=== PATIENT | female | born 1940 | race Asian ===

== ENCOUNTER 2018-10-28 16:28 | Inpatient (IN) | payer OTHER, BC ==
[~2018-10-28] VITALS: Ht 149.9 cm; Wt 51.5 kg
[2018-10-28 17:13] VITALS: Ht 149.9 cm; Wt 51.5 kg
[2018-10-28 19:03] LABS: BASOPHIL % 0.6 % (0-2); RED CELL DISTRIBUTION WIDTH 12.6 % (11.5-14.5)
[2018-10-28 19:04] LABS: CARBON DIOXIDE 28.8 mmol/L (21-32); CHLORIDE SERUM 106 mmol/L (98-107); CREATININE SERUM 0.6 mg/dL (0.6-1.0); GLUCOSE SERUM 110 mg/dL (74-106); SODIUM SERUM 144 mmol/L (136-145)
[2018-10-28 19:09] LABS: ALBUMIN 4.1 g/dL (3.4-5.0); ALKALINE PHOSPHATASE 102 U/L (46-116); ALT/SGPT 10 U/L (14-59); AST/SGOT 20 U/L (15-37); TOTAL PROTEIN, SERUM 7.8 g/dL (6.4-8.2)
[2018-10-28 19:30] LABS: PLATELET COUNT 2 x10^3mcL (130-400)
[2018-10-28] MEDS ORDERED: ATENOLOL50 MG PO (20:18)
[2018-10-28] MEDS ORDERED: NOR10 PO (20:18)
[2018-10-28] MEDS ORDERED: COZAAR100 MG PO (20:18)
[2018-10-28] MEDS ORDERED: ENALAPRIL MALEAT5 MG PO (20:19)
[2018-10-28 20:54] LABS: MAGNESIUM 2.4 mg/dL (1.8-2.4); PHOSPHOROUS 4.1 mg/dL (2.5-4.9)
[2018-10-28 20:58] LABS: CHOLESTEROL/HDL RATIO 4.2
[2018-10-28 21:00] VITALS: BP 161/74
[2018-10-28 21:01] LABS: T3 TOTAL 1.14 ng/mL
[2018-10-28 21:04] LABS: FREE T4 1.23 ng/dL (0.76-1.46); FREE THYROXINE INDEX 3.5 ug/dL (1.4-4.5); T4(THYROXINE) 10.2 ug/dL (4.7-13.3)
[2018-10-29 00:03] LABS: microscopic required? YES; urine erythrocyte 1+ (NEGATIVE)
[2018-10-29 00:27] LABS: AMPHETAMINE QUAL UR NONE DETECTED (See below)
[2018-10-29 05:14] VITALS: BP 114/59
[2018-10-29 06:54] LABS: CALCIUM 8.8 mg/dL (8.5-10.1); CARBON DIOXIDE 26.9 mmol/L (21-32); CHLORIDE SERUM 106 mmol/L (98-107); CREATININE SERUM 0.6 mg/dL (0.6-1.0); GLUCOSE SERUM 96 mg/dL (74-106); MAGNESIUM 2.3 mg/dL (1.8-2.4); PHOSPHOROUS 3.8 mg/dL (2.5-4.9); POTASSIUM SERUM 3.6 mmol/L (3.5-5.1); SODIUM SERUM 141 mmol/L (136-145)
[2018-10-29 08:03] LABS: IRON 81 ug/dL (50-170); TOTAL IRON BINDING CAPACITY 289 ug/dL (250-450)
[2018-10-29 08:34] LABS: RED CELL DISTRIBUTION WIDTH 12.6 % (11.5-14.5)
[2018-10-29 08:39] LABS: PLATELET COUNT 10 x10^3mcL (130-400)
[2018-10-29 09:49] VITALS: BP 110/65
[2018-10-29 13:11] LABS: RED BLOOD CELLS 3.46 M/mm3 (4.10-5.10)
[2018-10-29 15:00] LABS: BAND NEUTROPHIL 2 % (0-10); BASOPHIL 0 % (0-2); MONOCYTE 4 % (0-7); PLATELET MORPHOLOGY PLATELETS DECREASED; SEGMENTED NEUTROPHILS 76 % (37-75)
[2018-10-29 15:01] LABS: rbc morphology (normal/abnorm) ABNORMAL (NORMAL)
[2018-10-29] MEDS ORDERED: TEN50 PO (15:43)
[2018-10-29] MEDS ORDERED: NOR10 PO (15:43)
[2018-10-29] MEDS ORDERED: APAP/HYDROCODON1 T13 PO (15:44)
[2018-10-29] MEDS ORDERED: COL100 PO (15:44)
[2018-10-29] MEDS ORDERED: TYL325 PO (15:44)
[2018-10-29] MEDS ORDERED: COZ50 PO (15:44)
[2018-10-29] MEDS ORDERED: ZOFI IV (15:45)
[2018-10-29] MEDS ORDERED: DEC4 PO (15:45)
[2018-10-29 17:06] VITALS: BP 110/65
[2018-10-29 17:22] VITALS: BP 129/61
== END 2018-10-29 18:45 | disposition short-term general hospital (02) | DRG 813 ==
LOC: ED 16:28 → MU 19:46
PROVIDERS: Emergency Medicine; General Practice
PROC: 6A551Z2 Pheresis of Platelets, Multiple (ICD-10-PCS; principal; 2018-10-29)
DX: D69.3 Immune thrombocytopenic purpura (principal); I10 Essential (primary) hypertension; E78.1 Pure hyperglyceridemia
CPT/HCPCS: 83880; 84439; J7050; P9035; Q0092; Q0163